=== PATIENT | female | born 1995 | race Caucasian/White ===

== ENCOUNTER 2018-01-31 14:13 | Emergency (ER) | payer MEDICAID ==
[2018-01-31] MEDS ORDERED: Penicillin G Benzathine 1,200,000 Units/2 ML Syringe IM ONE (16:28)
--- NOTE | 2018-01-31 16:33 | EDM.PDOC ---
ED HPI GENERAL MEDICAL PROBLEM - General Chief Complaint: ENT Problem Stated Complaint: SORE THROAT Time Seen by Provider: 01/31/18 15:02 Source of Information: Reports: Patient History Limitations: Reports: No Limitations - History of Present Illness INITIAL COMMENTS - FREE TEXT/NARRATIVE: The patient presents with a sore throat. This stared a few days ago. She also has a fever and chills. Her tonsils are swollen. She has no exposure to strep. She has a slight cough. She has no abdominal pain, nausea or vomiting. Onset: Gradual Duration: Day(s): Location: Reports: Other (Throat) Quality: Reports: Sharp Severity: Moderate Improves with: Reports: None Worsens with: Reports: None Associated Symptoms: Reports: Cough, Fever/Chills. Denies: Chest Pain, Headaches, Nausea/Vomiting, Shortness of Breath Throat Pain Score (Numeric/FACES): 6 - Related Data Allergies Allergy/AdvReac Type Severity Reaction Status Date / Time lidocaine Allergy Other Verified 01/31/18 14:44 Home Meds: Home Meds . [No Known Home Meds] 01/31/18 [History] Past Medical History MANAGER APPLICATION History: Reports: Polycystic Ovaries Musculoskeletal History: Reports: Other (See Below) Other Musculoskeletal History: pinched nerves in back; sciatica issues to the right side Social & Family History - Tobacco Use Smoking Status *Q: Current Every Day Smoker Years of Tobacco use: 2 Packs/Tins Daily: 0.5 - Caffeine Use Caffeine Use: Reports: Coffee, Energy Drinks, Soda, Tea - Recreational Drug Use Recreational Drug Use: No ED ROS ENT - Review of Systems Review Of Systems: See Below Constitutional: Reports: Fever, Chills HEENT: Reports: Throat Pain Respiratory: Reports: Cough. Denies: Shortness of Breath Cardiovascular: Reports: No Symptoms Endocrine: Reports: No Symptoms GI/Abdominal: Reports: No Symptoms ED EXAM, ENT - Physical Exam Exam: See Below Exam Limited By: No Limitations General Appearance: Alert, No Apparent Distress Ears: Normal External Exam Nose: Normal Inspection Mouth/Throat: Pharyngeal Erythema, Tonsillar Erythema, Tonsillar Exudates, Tonsillar Swelling Head: Atraumatic, Normocephalic Neck: Lymphadenopathy (L), Lymphadenopathy (R) Respiratory/Chest: No Respiratory Distress, Lungs Clear, Normal Breath Sounds Cardiovascular: Regular Rate, Rhythm, No Edema, No Murmur GI/Abdominal: Soft, Non-Tender, No Organomegaly, No Mass Extremities: Normal Inspection Neurological: Alert, Oriented, No Motor/Sensory Deficits Course - Vital Signs Last Recorded V/S: Last Vital Signs Temp 100.4 F 01/31/18 14:39 Pulse 117 H 01/31/18 14:39 Resp 20 01/31/18 14:39 BP 117/74 01/31/18 14:39 Pulse Ox 93 L 01/31/18 14:39 - Orders/Labs/Meds Orders: Active Orders 24 hr Category Date Time Status CULTURE STREP A CONFIRMATION [RM] Stat Lab 01/31/18 14:35 Results STREP SCRN A RAPID W CULT CONF [RM] Stat Lab 01/31/18 14:35 Ordered Labs: Laboratory Tests 01/31/18 01/31/18 01/31/18 Range/Units 15:35 15:35 15:35 WBC 9.66 (3.98-10.04) K/mm3 RBC 4.88 (3.98-5.22) M/mm3 Hgb 14.0 (11.2-15.7) gm/L Hct 41.6 (34.1-44.9) % MCV 85.2 (79.4-94.8) fl MCH 28.7 (25.6-32.2) pg MCHC 33.7 (32.2-35.5) g/dl RDW Std Deviation 42.0 (36.4-46.3) fL Plt Count 224 (182-369) K/mm3 MPV 11.6 (9.4-12.3) fl Neut % (Auto) 73.6 H (34.0-71.1) % Lymph % (Auto) 14.9 L (19.3-51.7) % Barber % (Auto) 10.6 (4.7-12.5) % Eos % (Auto) 0.2 L (0.7-5.8) Baso % (Auto) 0.5 (0.1-1.2) % Neut # (Auto) 7.11 H (1.56-6.13) K/mm3 Lymph # (Auto) 1.44 (1.18-3.74) K/mm3 Barber # (Auto) 1.02 H (0.24-0.36) K/mm3 Eos # (Auto) 0.02 L (0.04-0.36) K/mm3 Baso # (Auto) 0.05 (0.01-0.08) K/mm3 Sodium 135 L (136-145) mEq/L Potassium 3.8 (3.5-5.1) mEq/L Chloride 97 L (98-107) mEq/L Carbon Dioxide 28 (21-32) mEq/L Anion Gap 13.8 (5-15) BUN 9 (7-18) mg/dL Creatinine 0.9 (0.55-1.02) mg/dL Est Cr Clr Drug Dosing 76.89 mL/min Estimated GFR (MDRD) > 60 (>60) mL/min BUN/Creatinine Ratio 10.0 L (14-18) Glucose 84 (74-106) mg/dL Calcium 8.6 (8.5-10.1) mg/dL Monoscreen Negative (NEGATIVE) Meds: Medications Discontinued Medications Generic Name Dose Route Start Last Admin Trade Name Freq PRN Reason Stop Dose Admin Penicillin G Benzathine 1.2 millunits 01/31/18 16:28 01/31/18 16:38 Bicillin L-A IM 01/31/18 16:29 1.2 millunits ONETIME ONE Administration - Re-Assessments/Exams Free Text/Narrative Re-Assessment/Exam: 01/31/18 16:35 The rapid strep is negative. Her CBC and BMP are negative. Her mono is negative. I am still worried she has a bacterial pharyngitis. Her tonsils are large and I am worried she has a bacterial infection. I will give her a shot of bicillin LA. Departure - Departure Time of Disposition: 16:50 Disposition: Home, Self-Care 01 Condition: Good Clinical Impression: Tonsillitis - Discharge Information Referrals: PCP,Not In Area [Primary Care Provider] - Forms: ED Department Discharge Additional Instructions: Drink plenty of fluids. Take motrin or tylenol for pain. If you cannot swallow pills try using the children's liquid medicine. Try gargling with salt water or use some chlorseptic spray or lozenges. Please return if you are worse. - My Orders Last 24 Hours: My Active Orders 01/31/18 14:35 STREP SCRN A RAPID W CULT CONF [RM] Stat - Assessment/Plan Last 24 Hours: My Active Orders 01/31/18 14:35 STREP SCRN A RAPID W CULT CONF [RM] Stat
== END 2018-01-31 16:57 | disposition home or self-care (01) ==
LOC: JD.ED 14:13
DX: J03.90 Acute tonsillitis, unspecified (principal); F17.210 Nicotine dependence, cigarettes, uncomplicated; Z88.8 Allergy status to other drugs, medicaments and biological substances
CPT/HCPCS: 36415; 80048; 85025; 86308; 87081; 87430; 96372; 99283; J0561